=== PATIENT | female | born 1955 | race Caucasian/White ===

== ENCOUNTER 2019-09-30 09:59 | Day surgery (SDC) | payer OTHER ==
[~2019-09-30] VITALS: Ht 160 cm; Wt 90.7 kg
--- NOTE | ~2019-09-30 | O ---
[facility] [place] [address] OPERATIVE REPORT Name: JOE SIMMONS Room #: [facility]P [facility] [place].#: [id number] Admission: 09/30/19 Attend Phys: Kvng Kerr Discharge: 09/30/19 Date of : 57 Report #: [id number] THIS REPORT FOR: cc: BRIGITTE GAMEZ Physician not on staff Kvng Paula MD ~ CC: BRIGITTE Paula Physician staff DATE OF SERVICE: 09/30/2019 PREOPERATIVE DIAGNOSES: Left shoulder pain, rotator cuff tear, anterior labral tear with Bankart lesion following dislocation. 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 PROCEDURE PERFORMED: Left shoulder arthroscopy, anterior labral/Bankart repair, anterior capsular plication, extensive debridement, debridement of partial thickness rotator cuff tear. SURGEON: Kvng Paula MD EQUINE PHARMACOLOGY TECHNICIAN: None. ANESTHESIA: General with preoperative ultrasound-guided interscalene block. FLUIDS: Please see anesthesia records. ESTIMATED BLOOD LOSS: Approximately 5 mL. SPECIMENS: None. DESCRIPTION OF PROCEDURE: After proper identification of the patient and operative site in preoperative holding area, the operative site was signed by myself. Prophylactic antibiotics given. The patient elected to receive an ultrasound-guided block after reviewing the risks, benefits, alternatives and complications with Anesthesia. After a satisfactory block, the patient was brought back to the operative suite, after induction of satisfactory general anesthesia, the left shoulder was examined. The patient had 1+ anterior and posterior translation and external rotation was approximately 30 degrees. She was able to be gently manipulated in 125 degrees of forward elevation. She was [facility] [address] [place] [address] OPERATIVE REPORT Name: JOE SIMMONS Room #: [facility] Neil.#: [id number] Admission: 09/30/19 Attend Phys: Kvng Kerr Discharge: 09/30/19 Date of : 57 Report #: [id number] then carefully positioned in the right lateral decubitus position. Cornell bag and axillary roll were utilized to support the torso. The left shoulder was sterilely prepped and draped in the usual manner and placed in 10 pounds of balanced arthroscopic suspension. Posterior portal was established, joint was inflated with an arthroscopic pump set at 40 mmHg. Anterior superior portal was created using a spinal needle for localization followed by an anterior inferior portal. Examination of the glenohumeral joint revealed intra-articular synovitis, complex labral fraying and tearing was noted. There was evidence of some mild fraying of the upper border of the subscapularis, but it was intact and otherwise debrided. Long head of the biceps tendon demonstrated some partial thickness tearing in this region and was carefully debrided. The supraspinatus and infraspinatus demonstrated some partial thickness tearing, but there did not appear to be full thickness component with this. Hill-Sachs lesion demonstrated mild impaction without a significant sized defect to drop into. Examination of the glenoid revealed an anterior bony Bankart lesion with a surrounding labral tear with the anterior inferior portal. This bony fragment was able to be mobilized and the anterior glenoid neck was prepared with sharp ring curette and motorized shaver. Using a suture Lasso, a labral tape was passed around the labrum and fragmented bony fragment and 2 of these were able to be passed and this was able to be lateralized and reduced as best as possible with the fragmentation of this bony Bankart fragment to the anterior glenoid rim with two 2.9 mm PushLock anchors and then superior to this portion of the middle glenohumeral ligament and more superior anterior labrum a mattress stitch was used to combine these into the third anchor of fixation superior to the bony area. A portion of the anterior capsular structures had also been captured creating more of a plication type stitch. The humeral head appeared centered within the glenoid. At this point, the arthroscope was introduced into the subacromial space where very thickened subacromial bursal tissue and subdeltoid space was noted. This thickened tissue was very carefully debrided and there appeared to be a confluence with the rotator cuff and the lateral humerus to where her tear noted on the initial MRI appeared to have healed in after debridement of this thickened scar tissue and probing of these tissues. This is best noted in the final 4 images from the arthroscopic photos. So, these partial thickness changes were carefully debrided. There was some articular-sided tearing noted, but with the bursal surface appearing to have healed in more of a confluent nature this was otherwise left intact. The joint was then thoroughly irrigated with normal saline. Portals closed with simple nylon stitches. The patient will be immobilized in a sling and abduction pillow for 4 weeks postoperatively. Postoperatively these findings were reviewed with the patient's with anticipated discharge to home and follow up as an outpatient. By: 1501 1521 Kvng Paula MD /nt
[~2019-09-30 09:59] MED LIST: ALLEGRA ALLERG180 MG PO; ASPIRIN325 PO; CALCIUM 600 +1 EAC1 PO; CENTRUM SILVER1 EAC4 PO; CINNAMON500 MG PO; CO-ENZYME Q-1010 MG PO; FLONASE 0.05%50 MCG NASAL; FOLBIC RF TABL1 EACH PO; IBUPROFEN200 M1 PO; IRON325 PO; KLOR-CON 1010 MEQ PO; LANOXIN 0.25M0.25 M1 PO; LASIX 40 MG TAB40 M2 PO; LISINOPRIL10 MG PO; MELATONIN5 MG PO; METFORMIN HCL500 MG PO; NIACIN500 MG PO; NOVOLOG FL100 UNIT/M SUBQ; NOVOLOG100 UNIT/1 SUBQ; NOXIFOL-D32500 UNIT PO; OMEGA-31000 M1 PO; OSTERA TABLET1 EAC1 PO; TOPROL XL25 MG PO; TRICOR145 MG PO; TURMERIC500 M2 PO; VICTOZA0.6 MG/0.1 SUBQ; WELCHOL 625 MG625 M1 PO; ZZZQUIL50 MG/301 PO
[2019-09-30 10:48] LABS: CALCIUM 9.4 mg/dL (8.5-10.1); CREATININE 0.9 mg/dL (0.6-1.0); POTASSIUM 4.4 mmol/L (3.5-5.1)
== END 2019-09-30 17:15 | disposition home or self-care (01) ==
LOC: TBA 09:59 → OR 09:59
PROVIDERS: ATTEND Orthopaedic Surgery Sports Medicine
DX: M25.511 Pain in right shoulder (principal); S43.491A Other sprain of right shoulder joint, initial encounter; M75.101 Unspecified rotator cuff tear or rupture of right shoulder, not specified as traumatic; M24.411 Recurrent dislocation, right shoulder; I10 Essential (primary) hypertension; E11.9 Type 2 diabetes mellitus without complications; I42.9 Cardiomyopathy, unspecified; Z79.82 Long term (current) use of aspirin; Z98.890 Other specified postprocedural states; Z11.59 Encounter for screening for other viral diseases; Z79.899 Other long term (current) drug therapy; Z90.710 Acquired absence of both cervix and uterus; Z87.442 Personal history of urinary calculi; Y92.89 Other specified places as the place of occurrence of the external cause; X58.XXXA Exposure to other specified factors, initial encounter; Y93.89 Activity, other specified; Y99.8 Other external cause status
CPT/HCPCS: 50010; 50101; 50172; 50386; 50417; 50597; 50935; 50950; 51038; 51320; 51445; 51847; 52313; 53610; 54170; 56525; 56527; 56530; 56617; 57103; 57413; 57416; 57417; 62110; 62900; 70005

== ENCOUNTER → 2020-01-13 | Outpatient (CLI) | payer OTHER ==
[~2020-01-13] MED LIST changes: +OZEMPIC0.25 MG/0. SUBQ; +VITAMIN C500 M1 PO
== END ==
LOC: LAB 11:47
PROVIDERS: ATTEND Orthopaedic Surgery
DX: Z01.812 Encounter for preprocedural laboratory examination (principal); Z20.828 Contact with and (suspected) exposure to other viral communicable diseases

== ENCOUNTER 2020-01-18 08:19 | Day surgery (SDC) | payer OTHER ==
[2020-01-13 11:14] LABS: HEMATOCRIT 40.8 % (37.0-47.0); HEMOGLOBIN 13.6 gm/dL (12.0-15.0); MCH 31.1 pg (26.0-34.0); MCHC 33.4 g/dL (28.0-37.0); RBC 4.38 mil/uL (4.20-5.00); RDW 13.8 % (10.5-14.5); WBC 6.5 thou/uL (4.0-11.0)
[2020-01-13 11:19] LABS: URINE BILIRUBIN NEGATIVE (Negative); URINE BLOOD NEGATIVE (Negative); URINE CLARITY CLEAR; URINE COLOR YELLOW; URINE GLUCOSE-RANDOM* NEGATIVE (Negative); URINE KETONES NEGATIVE (Negative); URINE NITRITE-REFLEX NEGATIVE (Negative); URINE PROTEIN (DIPSTICK) NEGATIVE (Negative); URINE SPECIFIC GRAVITY 1.015 (1.005-1.035); URINE UROBILINOGEN 0.2 E.U./dl (0.2-1.0)
[2020-01-13 11:20] LABS: ALBUMIN 3.8 g/dL (3.4-5.0); CALCIUM 9.2 mg/dL (8.5-10.1); CREATININE 0.6 mg/dL (0.6-1.0)
[2020-01-13 11:22] LABS: URINE LEUKOCYTES-REFLEX 1+ (Negative)
[2020-01-13 11:26] LABS: PROTIME 10.5 Seconds (9.3-11.4)
[2020-01-13 11:28] LABS: CASTS None Seen /LPF (None Seen); CRYSTALS None Seen /LPF (None Seen); SQUAMOUS 0-3 Few /LPF (0-3); URINE RBC 0-2 Rare /HPF (0-2); URINE WBC-REFLEX 0-5 Rare /HPF (0-5)
--- NOTE | 2020-01-13 16:40 | EKG ---
[facility] [place] [address] ELECTROCARDIOGRAM REPORT Name: JOE SIMMONS Room #: PRE IN M.R.#: [id number] Admission: Attend Phys: Geoff Carpenter MD Discharge: Date of : 57 Report #: [id number] THIS REPORT FOR: cc: BRIGITTE GAMEZ Physician not on staff Phil Troncoso MD [facility] ~ THIS REPORT FOR: //name// [facility] Test Date: 2020-01-13 Test Time: 11:06:59 Pat Name: JOE SIMMONS Department: Room: Gender: F Event Organizer: JW : 1955 Requested By: Geoff Carpenter Order Number: [id number] MD: Phil Troncoso Measurements Intervals [place] Rate: 94 P: 79 UT: 176 QRS: -29 QRSD: 164 T: 107 QT: 404 QTc: 506 Interpretive Statements Sinus rhythm Left bundle branch block Compared to ECG 08/21/2017 09:09:52 Ventricular premature complex(es) no longer present Electronically Signed On 01-13-2020 16:39:54 CDT by Phil Troncoso [email or web address] <ELECTRONICALLY SIGNED> By: Phil Troncoso MD, FACC 01/13/20 1639 1106 1106 Phil Troncoso MD, [facility] /EPI
[2020-01-14 02:06] LABS: GLYCOHEMOGLOBIN (HGB A1C) 6.8 % (4.8-5.6)
[~2020-01-18] VITALS: Ht 160 cm; Wt 93.0 kg
--- NOTE | ~2020-01-18 | O ---
[facility] [place] [address] OPERATIVE REPORT Name: JOE SIMMONS Room #: 448-P [facility] M.R.#: [id number] Admission: 01/18/20 Attend Phys: Geoff Carpenter MD Discharge: Date of : 57 Report #: [id number] THIS REPORT FOR: cc: BRIGITTE GAMEZ - Family physician unknown Geoff Carpenter MD ~ CC: BRIGITTE GAMEZ [facility] unknown Geoff Carpenter DATE OF SERVICE: 01/18/2020 PREOPERATIVE DIAGNOSIS: Left hip osteoarthritis. POSTOPERATIVE DIAGNOSIS: Left hip osteoarthritis. PROCEDURE: Left total hip arthroplasty. SURGEON: Geoff Carpenter MD [employer]ATION ATTENDANT: Marcella Andrade PA-C. INDICATIONS FOR AUTO SELF SERVICE STATION ATTENDANT: Throughout the case, extensive retraction and manipulation of the hip was required including dislocation and reduction. This was afforded to me by my assistant refinery operator. ANESTHESIA: LMA. IMPLANTS: Suárez and Nephew size 12 high offset Synergy press-fit stem, a size 50 R3 acetabular cup with 1 acetabular screw, a size 32+0 Oxinium head and an Arthrex FiberWire cerclage for prophylactic femur fixation. ESTIMATED BLOOD LOSS: 100 mL. COMPLICATIONS: None. SPECIMENS: None. CONDITION UPON LEAVING THE OPERATING ROOM: Stable. INDICATIONS FOR PROCEDURE: The patient is a 64-year-old female with severe left hip osteoarthritis. She had failed conservative measures for this and after discussion with her, she elected for left total hip arthroplasty. DESCRIPTION OF PROCEDURE: Risks, benefits, alternatives, complications were discussed in detail with the patient including but not limited to risk of [facility] [address] [place] [address] OPERATIVE REPORT Name: JOE SIMMONS Room #: 448-P [facility] M.R.#: [id number] Admission: 01/18/20 Attend Phys: Geoff Carpenter MD Discharge: Date of : 57 Report #: [id number] anesthesia, risk of damage to nerves, arteries, blood vessels, risk for infection, bleeding, risk for continued hip pain, leg length discrepancy, instability and need for reoperation. Informed consent was obtained from the patient. Left hip was appropriately marked in the preoperative holding area. IV Ancef was given for preoperative antibiotics. She was brought to the operating room and placed in supine position on operating room table. LMA anesthesia was induced without complication. She was then placed in the right lateral decubitus position with left hip uppermost. Left hip and lower extremity were prepped and draped in normal sterile fashion. Timeout was performed properly identifying the patient and procedure as well as the instrumentation and implants. All in the operating room were in agreement. Standard posterior approach to the hip was made with 10 blade through the skin. Dissection was taken down to the fascia with Bovie cautery and deep flaps were developed anteriorly and posteriorly. Fresh 10 blade was used to make a fascial incision. This was taken proximally and distally with curved Pemberton scissor. Charnley retractor was placed. Trochanteric bursa was taken down with Bovie cautery. Piriformis tendon was identified, tagged and taken down with Bovie cautery. Short external rotators were also taken down with Bovie cautery. Capsulotomy was made and capsule ends were tagged for later repair. Hip was dislocated. There was extensive osteoarthritic change of the femoral head. Femoral neck cut was made 1 cm proximal to lesser trochanter based on preoperative templating and the femoral head was removed. Deep acetabular retractors were placed. Labrum was removed sharply. Pulvinar was removed with Bovie cautery. Acetabulum was then sequentially reamed up to a size 50, at which point there was excellent bleeding cancellous bone. A size 50 R3 acetabular cup was placed and seated. One acetabular screw was placed for backup fixation and polyethylene liner for 32 head was placed. Attention was then turned to the femur and an Arthrex FiberTape and a cerclage was placed around the proximal femur for prophylactic fracture fixation and the femur was reamed and broached up to a size 12, at which point the size 12 broach was stable. This was trialed with a high offset neck with a 32+0 head. Hip was reduced, taken through range of motion, found to be stable, found to have equal leg lengths. Hip was dislocated. The broach was removed. A final size 12 high offset Synergy press-fit stem was placed. This was trialed again with a 32+0 head. Hip was reduced, taken through range of motion, found to be stable, found to have equal leg lengths. Hip was dislocated one last time and a final size 32+0 Oxinium head was placed. Hip was reduced, taken through range of motion, found to be stable, found to have equal leg lengths. The hip was thoroughly irrigated with normal saline. Periarticular injection consisting of morphine, ropivacaine, epinephrine and Toradol was placed around the hip joint capsule. A gram of vancomycin was placed deep in the joint. The capsule and piriformis were repaired with 0 FiberWire. The fascia was closed with 0 Vicryl, skin was closed with 2-0 Vicryl, skin staple and a BUNNY dressing was applied. The [address] [address] OPERATIVE REPORT Name: JOE SIMMONS Room #: 448-P REG [facility].#: [id number] Admission: 01/18/20 Attend Phys: Geoff Carpenter MD Discharge: Date of : 57 Report #: [id number] patient tolerated this procedure well and went to recovery room under care of anesthesia postoperatively. By: 1452 1506 Geoff Carpenter MD /nt
[2020-01-18 09:25] VITALS: BP 157/78
[2020-01-18] MEDS ORDERED: COLACE100 MG PO (16:28)
[2020-01-18] MEDS ORDERED: SENNA8.6 MG PO (16:28)
--- NOTE | 2020-01-18 17:56 | NUR ---
PATIENT ADMIITED FROM OR WITH LEFT TOTAL HIP REPLACEMENT. PATIENT ALERT AND ORIENTED X 4. PATIENT UNABLE TO WORK WITH PT DUE TO BLOCK AND PATIENT UNABLE TO BEAR WEIGHT. PATIENT C/O MILD PAIN WITH MOVEMENT, BUT REFUSES PAIN MEDS AT THIS TIME. PATIENT GIVEN BOX LUNCH AND DIET SODA, BLOOD SUGAR CHECKED 350. BUNNY DRESSING TO LEFT HIP, AVELINO HOSE AND SCD'S, ICE PACK REFILLED AND APPLIED TO LEFT HIP AREA. PATIENT HAS RIGHT HAND 20G IV IN PLACE. PATIENT ASSISTED ON BEDPAN, URINATED W/O DIFFICULTY, PATIENT TAKING PO ANTIBIOTIC FOR UTI, HER MEDICATION FROM HOME, ALIS TOOK MEDS DOWN FOR PHARMACY TO VERIFY. ADMISSION COMPLETED AND REPORT GIVEN TO ALIS.
[2020-01-18 18:26] VITALS: BP 124/56
[2020-01-19 03:46] VITALS: BP 126/69
--- NOTE | 2020-01-19 04:52 | NUR ---
PT CARE ASSUMED AT 1915 WITH PT IN BED WATCHING TV.PT IS ALERT AND ORIENTED X4.PT USED BEDPAN FOR ELIMINATION.IV ACCESS ON RIGHT WRIST WITH D5W 0.45 NS AT 75ML/HR.PT IS ACCUCHCEK ACHS WITH LOW SSI.WILL CONINUE TO MONITOR POC
[2020-01-19 05:54] LABS: CALCIUM 8.6 mg/dL (8.5-10.1); CREATININE 0.9 mg/dL (0.6-1.0); MAGNESIUM 1.8 mg/dL (1.8-2.4); POTASSIUM 4.5 mmol/L (3.5-5.1)
[2020-01-19 06:07] LABS: BASOPHILS 0.1 % (0.0-2.0); HEMATOCRIT 33.2 % (37.0-47.0); HEMOGLOBIN 11.2 gm/dL (12.0-15.0); LYMPHOCYTES 16.9 % (24.0-44.0); MCH 31.8 pg (26.0-34.0); MCHC 33.6 g/dL (28.0-37.0); MCV 94.4 fL (80.0-100.0); MONOCYTES 11.2 % (1.0-8.0); PLATELET COUNT 239 thou/uL (150-400); POLYS 71.8 % (36.0-66.0); RBC 3.52 mil/uL (4.20-5.00); RDW 13.8 % (10.5-14.5); WBC 9.7 thou/uL (4.0-11.0)
--- NOTE | 2020-01-19 10:19 | NUR ---
ASSESSMENT: CM REVIEWED CHART AND MET WITH PATIENT. PT IS S/P LEFT TOTAL HIP REPLACEMENT. PT REPORTS SHE LIVES IN A HOME WITH HER . PT REPORTS TWO STEPS TO ENTER WITH A GRABBAR. PT REPORTS ONCE INSIDE ABOUT 12 STEPS WITH HANDRAILS TO HER BEDROOM. PT REPORTS SHE HAS A RECLINER ON THE MAIN FLOOR SHE PLANS TO SLEEP IN FOR A WHILE. PT REPORTS SHE HAD RECENT ROTATER CUFF SURGERY AND HAS BEEN GOING TO [facility] AND PLANS ON CONTINUING THIS WITH HER HIP WELL. PT IS WORKING WITH PHYSICAL THERAPY AND WILL NEED A WALKER FOR HOME. PT REPORTS NO PREFERENCE OF [employer]. CM NOTIFIED [employer] TO SEE IF THEY CAN SUPPLY A WALKER TO PATIENT. PT IS TO WORK WITH PHYSICAL THERAPY THIS PM WITH STAIRS AND IS POSSIBLE DISCHARGE AFTER. CM WILL CONTINUE TO FOLLOW TO ASSIST NEEDED.
[2020-01-19 10:26] VITALS: BP 132/72
[2020-01-19 15:24] VITALS: BP 132/72
[2020-01-19 15:25] VITALS: BP 132/72
--- NOTE | 2020-01-19 16:00 | NUR ---
PT ASSESSED AT START OF SHIFT. WORKED W/ THERAPY TWICE AND PASSED REQUIREMENTS FOR DISCHARGE. PAIN MEDS INCREASED TO 2 TABS ONE NOT ENOUGH. DC'D TO HOME PER W/C W/ ALL BELONGINGS.
== END 2020-01-19 16:31 | disposition home or self-care (01) ==
LOC: OR 08:19 → TBA 08:20 → PRE 10:15 → 4S 13:23 → EDSTATUS 15:42 → OR 15:52 → PRE 16:17 → OR 01-19 16:31
PROVIDERS: Nurse Practitioner; ATTEND Orthopaedic Surgery
DX: M16.12 Unilateral primary osteoarthritis, left hip (principal); M25.552 Pain in left hip; I10 Essential (primary) hypertension; I42.9 Cardiomyopathy, unspecified; Z98.890 Other specified postprocedural states; Z79.899 Other long term (current) drug therapy; Z79.4 Long term (current) use of insulin; Z87.442 Personal history of urinary calculi; Z90.710 Acquired absence of both cervix and uterus
CPT/HCPCS: 50010; 50101; 50382; 50414; 51412; 51771; 53000; 53078; 53368; 56524; 56528; 56530; 57095; 57103; 58297; 58298; 62110; 62900; 70005

== ENCOUNTER → 2020-05-13 | Outpatient (CLI) | payer BC, OTHER ==
[~2020-05-13] MED LIST changes: +COLACE100 MG PO; +SENNA8.6 MG PO; +VITAMIN B-121000 MC2 SUBLING
== END ==
LOC: LAB 05-11 08:30
PROVIDERS: ATTEND Orthopaedic Surgery
DX: Z01.812 Encounter for preprocedural laboratory examination (principal); Z20.822 Contact with and (suspected) exposure to COVID-19

== ENCOUNTER → 2020-05-23 | Outpatient (CLI) | payer BC, OTHER | LOC: LAB 07:40 | PROVIDERS: ATTEND Orthopaedic Surgery | DX: Z01.812 Encounter for preprocedural laboratory examination (principal); Z20.822 Contact with and (suspected) exposure to COVID-19 ==

== ENCOUNTER 2020-05-26 07:36 | Day surgery (SDC) | payer BC, OTHER ==
[2020-05-13 09:10] LABS: HEMATOCRIT 41.4 % (37.0-47.0); HEMOGLOBIN 13.8 gm/dL (12.0-15.0); MCH 30.6 pg (26.0-34.0); MCHC 33.3 g/dL (28.0-37.0); MCV 91.9 fL (80.0-100.0); RBC 4.5 mil/uL (4.20-5.00)
[2020-05-13 09:21] LABS: ALBUMIN 3.7 g/dL (3.4-5.0); CALCIUM 9.6 mg/dL (8.5-10.1); CREATININE 0.9 mg/dL (0.6-1.0); POTASSIUM 4.1 mmol/L (3.5-5.1); PROTIME 10.4 Seconds (9.3-11.4)
[2020-05-13 09:34] LABS: URINE BILIRUBIN NEGATIVE (Negative); URINE BLOOD NEGATIVE (Negative); URINE CLARITY CLEAR; URINE COLOR YELLOW; URINE GLUCOSE-RANDOM* 1+ (Negative); URINE KETONES NEGATIVE (Negative); URINE LEUKOCYTES-REFLEX NEGATIVE (Negative); URINE NITRITE-REFLEX NEGATIVE (Negative); URINE PROTEIN (DIPSTICK) NEGATIVE (Negative); URINE UROBILINOGEN 0.2 E.U./dl (0.2-1.0)
[2020-05-14 02:06] LABS: GLYCOHEMOGLOBIN (HGB A1C) 7.6 % (4.8-5.6)
[~2020-05-26] VITALS: Ht 160 cm; Wt 93.0 kg
[2020-05-26 08:33] VITALS: BP 154/88
[2020-05-26 13:35] VITALS: BP 121/60
--- NOTE | 2020-05-26 15:02 | NUR ---
PATIENT CAME TO ROOM 447 FROM POST OP HAD RIGHT TOTAL HIP REPLACEMENT. AT BEDSIDE. V.S. 97.8 22 89 121/60 O2 SAT 93% RA WEIGHT = 210 LBS HEIGHT = 5" 3 PT WORKED WITH THERAPY AND PT GAVE OKAY THAT PATIENT COULD GO HOME ORDER WAS OBSERVATION WITH DC WHEN PT OKAYED. ORTHO FOLDER GIVEN TO PATIENT PT HAS AVELINO HOSE ON [employer] DRESSING IN PLACE ICE BAG FOR COMFORT. IV ACSESS DCD PATIENT HAS RX'S AT HOME AND WALKER WAS DELIEVERED HERE TO HER ROOM.
[2020-05-26 15:31] VITALS: BP 121/60
[2020-05-26 16:05] VITALS: BP 121/60
--- NOTE | 2020-05-27 06:40 | NUR ---
PATIENT D/C PRIOR TO OT EVAL BEING PERFORMED
--- NOTE | 2020-05-30 16:03 | O ---
[facility] [place] [address] OPERATIVE REPORT Name: JOE SIMMONS Room #: [place] [facility] [place] [id number] Admission: 05/26/20 Attend Phys: Geoff Carpenter MD Discharge: 05/26/20 Date of : 57 Report #: [id number] THIS REPORT FOR: cc: Physician not on staff Physician not on staff Geoff Carpenter MD ~ DATE OF SERVICE: 05/26/2020 PREOPERATIVE DIAGNOSIS: Right hip osteoarthritis. POSTOPERATIVE DIAGNOSIS: Right hip osteoarthritis. PROCEDURE: Right total hip arthroplasty. SURGEON: Geoff Carpenter MD. HIGH SCHOOL SCIENCE TEACHER: Marcella Andrade PA-C. INDICATIONS FOR HIGH SCHOOL SCIENCE TEACHER: Throughout the case, extensive retraction and manipulation of the hip including dislocation and reduction was required. This was afforded to me by my optometric assistant. ANESTHESIA: LMA. IMPLANTS: Suárez and Nephew size 12 high offset Synergy press-fit femoral stem, a size 50 R3 acetabular cup with 1 acetabular screw, a size 32 -3 Oxinium head and an Arthrex FiberTape for prophylactic femur fixation. ESTIMATED BLOOD LOSS: 100 mL. COMPLICATIONS: None. SPECIMENS: None. CONDITION UPON LEAVING THE OPERATING ROOM: Stable. INDICATIONS FOR PROCEDURE: The patient is a 65-year-old female with severe right hip osteoarthritis. She had failed conservative measures for this and after discussion with her, she elected for right total hip arthroplasty. DESCRIPTION OF PROCEDURE: Risks, benefits, alternatives, complications were discussed in detail with the patient including but not limited to risk of anesthesia, risk of damage to nerves, arteries, blood vessels, risk for infection, bleeding, risk for leg length discrepancy, instability and need for reoperation. Informed consent was obtained from the patient. The right hip was [facility] [address] [place] [address] OPERATIVE REPORT Name: JOE SIMMONS Room #: [place] [facility] [place]#: [id number] Admission: 05/26/20 Attend Phys: Geoff Carpenter MD Discharge: 05/26/20 Date of : 57 Report #: [id number] appropriately marked in the preoperative holding area. IV Ancef was given for preoperative antibiotics. She was brought to the operating room and placed in the supine position on the operating room table. LMA anesthesia was induced without complication. She was placed in the left lateral decubitus position with the right hip uppermost. Right hip and lower extremity were then prepped and draped in normal sterile fashion. Timeout was performed properly identifying the patient and procedure as well as the instrumentation and implants. All in the operating room were in agreement. Standard posterior approach to the hip was made with 10 blade through the skin. Dissection was taken down sharply to the fascia. Deep flaps were developed medially and laterally. Fresh 10 blade was used to make a fascial incision. This was taken proximally and distally with curved Pemberton scissor. Charnley retractor was placed. Trochanteric bursa was taken down with Bovie cautery. Piriformis tendon was identified, tagged and taken down with Bovie. Short external rotators were also taken down with Bovie cautery. Capsulotomy was made and capsule ends were tagged for later repair. Hip was dislocated. There was extensive osteoarthritic change of the femoral head. Femoral neck cut was made 1 cm proximal to lesser trochanter based on preoperative templating and femoral head was removed. Deep acetabular retractors were placed. Labrum was removed sharply. Pulvinar was removed with Bovie cautery. Acetabulum was then sequentially reamed up to a size 50, at which point, there was excellent bleeding cancellous bone. A size 49 trial cup was placed, found to have a good fit. Final size 53 R3 acetabular cup was placed and seated. One acetabular screw was placed for backup fixation and polyethylene liner for a 32 head was placed. Attention was then turned to the femur. This was reamed and broached up to a size 12, at which point, the size 12 broach was stable, was trialed with a high offset neck and a 32+0 head. Hip was reduced, taken through range of motion, found to be stable, found to have equal leg lengths. Hip was dislocated and broach was removed. An Arthrex FiberTape was placed around the proximal femur just proximal to lesser trochanter for prophylactic fixation and final size 12 high offset Synergy press-fit stem was placed and seated. This did not seat quite as deeply as the broach and so we trialled a 32-3 head. Hip was reduced, taken through range of motion, found to be stable, found to have equal leg lengths. Hip was dislocated, trial head was removed and final size 32-3 Oxinium head was placed. Hip was reduced, taken through range of motion, found to be stable, found to have equal leg lengths. Hip was thoroughly irrigated with normal saline. Periarticular injection consisting of morphine, ropivacaine, epinephrine, Toradol was placed around the hip joint capsule. A gram of vancomycin was placed deep in the joint. The capsule and piriformis were repaired with 0 FiberWire. Fascia was closed with 0 Vicryl, skin was closed with 2-0 Vicryl, skin staple and a BUNNY dressing was applied. The [address] [address] OPERATIVE REPORT Name: JOE SIMMONS Room #: DEP [place] Gunner#: [id number] Admission: 05/26/20 Attend Phys: Geoff Carpenter MD Discharge: 05/26/20 Date of : 57 Report #: [id number] patient tolerated this procedure well and went to recovery room under care of anesthesia postoperatively. <ELECTRONICALLY SIGNED> By: Geoff Carpenter MD 05/30/20 1603 1723 1741 Geoff Carpenter MD /nt
== END 2020-05-26 16:14 | disposition home or self-care (01) ==
LOC: OR 07:36 → TBA 07:42 → OR 12:57 → 4S 13:13 → OR 14:39
PROVIDERS: ATTEND Orthopaedic Surgery
DX: M16.11 Unilateral primary osteoarthritis, right hip (principal); M25.551 Pain in right hip; I10 Essential (primary) hypertension; E11.9 Type 2 diabetes mellitus without complications; I42.9 Cardiomyopathy, unspecified; Z98.890 Other specified postprocedural states; Z79.899 Other long term (current) drug therapy; Z79.82 Long term (current) use of aspirin; Z79.4 Long term (current) use of insulin; Z87.442 Personal history of urinary calculi; Z96.642 Presence of left artificial hip joint; Z90.710 Acquired absence of both cervix and uterus
CPT/HCPCS: 50010; 50101; 50382; 50414; 51412; 53000; 53078; 53368; 54118; 56524; 56527; 56528; 56530; 57095; 57103; 62110; 62900; 70005